=== PATIENT | male | born 1985 | race American Indian/Alaskan Native ===

== ENCOUNTER 2018-05-19 00:07 | Emergency (ER) | payer SELFPAY ==
[2018-05-19 00:26] VITALS: RESP 20
[2018-05-19] MEDS ORDERED: Tetanus/Diphtheria Toxoids 0.5 ml Syringe IM ONE ×2 (00:48→00:54)
[2018-05-19] MEDS ORDERED: Lidocaine 2% MPF (5 ml) Inj ONE ×2 (01:24→01:26)
--- NOTE | 2018-05-19 02:08 | C.PDOC ---
History Of Present Illness 32yo male, comes to ER for evaluation of left lower extremity laceration, sustained while attempting to jump over a fence. Patient states after the injury he was able to run and walk without difficulty. He also states he is unsure if his tetanus vaccine is up to date. Patient denies any falls, head injury, weakness, and offers no additional medical complaints. Time Seen by Provider: 05/19/18 00:27 Chief Complaint (Nursing): Lower Extremity Problem/Injury History Per: Patient History/Exam Limitations: no limitations Onset/Duration Of Symptoms: Hrs Current Symptoms Are (Timing): Still Present Additional History Per: Patient Past Medical History Reviewed: Historical Data, Nursing Documentation, Vital Signs Vital Signs: Last Vital Signs Temp 98.7 F 05/19/18 02:58 Pulse 81 05/19/18 02:58 Resp 20 05/19/18 02:58 BP 130/81 05/19/18 02:58 Pulse Ox 99 05/19/18 03:56 - Medical History PMH: No Chronic Diseases Surgical History: No Surg Hx Family History: States: No Known Family Hx - Social History Hx Alcohol Use: No Hx Substance Use: No Review Of Systems Musculoskeletal: Positive for: Other (left ankle injury) Neurological: Negative for: Weakness, Numbness Physical Exam - Physical Exam Appears: Non-toxic Skin: Warm, Dry Head: Normacephalic Eye(s): bilateral: Normal Inspection Neck: Supple Chest: Symmetrical Cardiovascular: Rhythm Regular Extremity: Normal ROM (FROM left ankle), Capillary Refill (< 2 seconds), No Deformity, Other (6cm laceration to posterior left ankle over achilles tendon; ( +)tendon able to visualized, (-) apparent tendon laceration;( -) Argueta test) Pulses: Left Dorsalis Pedis: Normal, Right Dorsalis Pedis: Normal Neurological/Psych: Oriented x3, Normal Speech, Normal Cognition, Normal Motor, Normal Sensation Gait: Steady ED Course And Treatment O2 Sat by Pulse Oximetry: 99 (RA) Pulse Ox Interpretation: Normal Progress Note: Patient given tetanus booster. Patient seen by Dr. Raymundo, ER Physician who is agreeable with plan for laceration repair using sutures. Patient ambulatory after laceration repair. Patient instructed on wound care and was strongly advised to follow up with orthopedist. Procedure: Wound Repair - Time Out Time Out: Side verified, Site verified, Patient ID confirmed - Consent Obtained Consent obtained: Verbal - Performed by Performed by: Mid-level Provider - Indications Indication(s):: Laceration - Location Location:: Left, Posterior, Ankle Shape:: Linear Dimensions Length cm: 6 - Anesthetic Technique Anesthetic Technique: Local Local/Regional Anesthetic:: Lidocaine 2% - Irrigated Irrigated with ml of normal saline: 1000ml normal saline and betadine solution - Wound repair method Sutures:: # (7), Size (3:0), Type (nylon), Technique (simple interrupted) - Patient tolerated procedure Patient Tolerated Procedure:: Well (Wound dressed with bacitracin and sterile dressing applied. Patient tolerated procedure well.) Disposition Counseled Patient/Family Regarding: Diagnosis, Need For Followup, Rx Given - Disposition Referrals: PMD, PMD [Other] Disposition: HOME/ ROUTINE Disposition Time: 02:04 Condition: STABLE Additional Instructions: Please follow with P[facility]D / o orthopedist Wound check in 2 days Apply antibacterial oint Follow wound care instructions Suture removal in 10-14 days Return to ER if worse Instructions: Laceration Repair With Stitches (DC) Forms: [employer] (Romanian) - Clinical Impression Clinical Impression: Laceration of left heel - PA / [employer]PER[employer] / Resident Statement MD/DO has reviewed & agrees with the documentation as recorded. - Scribe Statement The provider has reviewed the documentation as recorded by the Nicki Koehler Provider Attestation: All medical record entries made by the Nicki were at my direction and personally dictated by me. I have reviewed the chart and agree that the record accurately reflects my personal performance of the history, physical exam, medical decision making, and the department course for this patient. I have also personally directed, reviewed, and agree with the discharge instructions and disposition.
[2018-05-19 02:59] VITALS: BP 130/81; PULSE 81; TEMP 98.7
[2018-05-19 03:29] VITALS: O2SAT 99
== END 2018-05-19 02:59 | disposition home or self-care (01) ==
LOC: C.ER 00:07
DX: S91.312A Laceration without foreign body, left foot, initial encounter (principal); W23.1XXA Caught, crushed, jammed, or pinched between stationary objects, initial encounter; Y92.89 Other specified places as the place of occurrence of the external cause; Z23 Encounter for immunization